=== PATIENT | female | born 1955 | race African-American/Black ===

== ENCOUNTER → 2017-04-01 | Outpatient (CLI) | payer OTHER ==
--- NOTE | 2017-04-02 09:29 | MM ---
Reason for exam: screening (asymptomatic). Last mammogram was performed 1 year and 3 months ago. History: Family history of breast cancer in mother. Physical Findings: A clinical breast exam by your physician is recommended on an annual basis and results should be correlated with mammographic findings. MG Screening Mammo w CAD Bilateral CC and MLO view(s) were taken. Prior study comparison: December 18, 2015, bilateral MG screening mammo w CAD. October 18, 2014, bilateral MG screening mammo w CAD. There are scattered fibroglandular densities. No suspicious abnormality. No significant changes when compared with prior studies. ASSESSMENT: Negative, BI-RAD 1 RECOMMENDATION: Routine screening mammogram of both breasts in 1 year.
== END | disposition home or self-care (01) ==
LOC: RADMAMWWP 09:38
PROVIDERS: ATTEND Obstetrics & Gynecology
DX: Z12.31 Encounter for screening mammogram for malignant neoplasm of breast (principal)

== ENCOUNTER → 2017-05-13 | Outpatient (CLI) | payer OTHER ==
--- NOTE | 2017-05-13 10:28 | US ---
EXAMINATION TYPE: US thyroid st tissue head/neck DATE OF EXAM: 05/13/2017 COMPARISON: US dated 10/10/2014 and 09/08/2013 CLINICAL HISTORY: E04.2 Nontoxic Multinodular Goiter. GLAND SIZE: Right Lobe: 4.9 x 1.4 x 1.5 cm Overall Parenchyma: homogenous Left Lobe: 5.4 x 2.5 x 3.0 cm Overall Parenchyma: heterogeneous Isthmus Thickness: 0.3 cm NODULES RIGHT: # of nodules measured on right: 1 1. 0.8 X 0.4 x 0.6 cm hypoechoic solid nodule at the lower pole with well-defined margins; present with microcalcifications. This nodule is wider than tall and shows intranodular vascularity. Prior size: 0.6 x 0.3 x 0.6 cm LEFT: # of nodules measured on left: 1 1. 4.7 X 2.5 x 3.2 cm isoechoic solid nodule at the mid pole with well-defined margins; . This nod ule is wider than tall and shows intranodular vascularity. Prior size: 3.9 x 2.1 x 2.7 cm ISTHMUS: # of nodules measured in the isthmus: 0 Bilateral neck scanned, no evidence of lymphadenopathy. Nodules as described, there are a couple other subcentimeter nodules seen on the right. Left nodule t akes up entire lobe, very little normal tissue seen. IMPRESSION: 1. Enlarging suspicious dominant left thyroid nodule that is solid and predominantly isoechoic with c ystic internal components and internal vascular flow. Percutaneous fine-needle aspiration is recommen ded for this lesion. 2. Minimally enlarging right thyroid nodule with potential inspissated colloid versus calcifications. Surveillance is recommended for this nodule and smaller subcentimeter nodules of the bilateral thyro id gland. 3. Enlarged heterogenous thyroid gland relating to thyroid goiter.
== END | disposition home or self-care (01) ==
LOC: RADUSWWP 09:40
PROVIDERS: ATTEND Family Medicine
DX: E04.2 Nontoxic multinodular goiter (principal)
CPT/HCPCS: 76536

== ENCOUNTER → 2017-06-03 | Outpatient (CLI) | payer OTHER ==
--- NOTE | 2017-06-03 09:00 | US ---
EXAMINATION TYPE: US kidneys/renal and bladder DATE OF EXAM: 06/03/2017 COMPARISON: Renal ultrasound June 01, 2012 CLINICAL HISTORY: R31.21 Asymptomatic microscopic hematuria. UTI, microscopic hematuria EXAM MEASUREMENTS: Right Kidney: 10.9 x 4.1 x 3.9 cm Left Kidney: 10.1 x 5.0 x 4.6 cm Technical limitations due to large amount of overlying bowel content Right Kidney: no evidence of hydronephrosis or mass Left Kidney: no evidence of hydronephrosis or mass Bladder: wnl Bilateral Jets seen: yes There is no evidence for hydronephrosis at this point in time. No nephrolithiasis is seen. No nuris s are identified on images saved. Bladder is not greatly distended and is thus suboptimally evaluate d. The urinary bladder is anechoic. Bilateral ureteral jets are seen. IMPRESSION: Suboptimal otherwise unremarkable study.
== END | disposition home or self-care (01) ==
LOC: RADUSWWP 08:15
PROVIDERS: ATTEND Family Medicine
DX: R31.21 Asymptomatic microscopic hematuria (principal)
CPT/HCPCS: 76770

== ENCOUNTER → 2018-03-24 | Outpatient (CLI) | payer OTHER ==
--- NOTE | 2018-03-26 01:47 | MR ---
EXAMINATION TYPE: MR knee RT wo con DATE OF EXAM: 03/24/2018 COMPARISON: Outside radiographs 03/12/2018 03/12/2014 HISTORY: 62-year-old female Right knee pain TECHNIQUE: Multiplanar, multisequence imaging of the right knee is performed without IV contrast. FINDINGS: ACL, PCL, and LCL complex are intact. There is mild soft tissue edema on either side of the intact MC L. There is a small inner margin radial tear involving the body lateral meniscus and some degenerative s ignal in the posterior horn. Mild diffuse thinning of lateral compartment articular cartilage volume. There is an oblique tear involving the junction of the posterior horn and body of the medial meniscus with mild diffuse thinning of articular cartilage volume in the medial compartment. Mild to moderate diffuse thinning of articular cartilage volume at the patellofemoral compartment wit h mild marginal spurring. Focal moderate thickness cartilage fissuring along the lateral patellar fac et. Extensor mechanism is intact. Small knee joint effusion and small 3.0 cm Mayorga's cyst. Normal popliteal artery anatomy with mild muscular atrophy. No suspicious bone marrow replacement. IMPRESSION: 1. Soft tissue edema suggesting grade 1 MCL sprain. 2. Oblique tear junction of the posterior horn and body of the medial meniscus. 3. Small inner margin radial tear involving the body of the lateral meniscus. 4. Mild diffuse articular cartilage thinning throughout the knee, mild to moderate within the patello femoral compartment. 5. Small knee joint effusion and small Mayorga's cyst.
== END | disposition home or self-care (01) ==
LOC: RADMRIMAIN 10:07
PROVIDERS: ATTEND Orthopaedic Surgery
DX: S83.241A Other tear of medial meniscus, current injury, right knee, initial encounter (principal); S83.281A Other tear of lateral meniscus, current injury, right knee, initial encounter; M25.461 Effusion, right knee; M71.21 Synovial cyst of popliteal space [Baker], right knee

== ENCOUNTER → 2018-03-30 | Outpatient (CLI) | payer OTHER ==
[2018-03-30 14:24] LABS: Basophils % (A) 1 %; Eosinophils % (A) 1 %; HCT 39.2 % (34.0-46.0); HGB 12.7 gm/dL (11.4-16.0); Lymphocytes # (A) 1.6 k/uL (1.0-4.8); Lymphocytes % (A) 38 %; MCH 27.7 pg (25.0-35.0); MCHC 32.5 g/dL (31.0-37.0); MCV 85.3 fL (80.0-100.0); Mean Platelet Volume 6.8; Monocytes # (A) 0.2 k/uL (0-1.0); Monocytes % (A) 4 %; Neutrophils # (A) 2.4 k/uL (1.3-7.7); Neutrophils % (A) 56 %; Platelet Count 300 k/uL (150-450); WBC 4.3 k/uL (3.8-10.6)
[2018-03-30 14:35] LABS: Potassium 4.3 mmol/L (3.5-5.1)
== END | disposition home or self-care (01) ==
LOC: LABPAT 13:02
PROVIDERS: ATTEND Orthopaedic Surgery
DX: Z01.818 Encounter for other preprocedural examination (principal); Z01.812 Encounter for preprocedural laboratory examination; M23.91 Unspecified internal derangement of right knee
CPT/HCPCS: 36415; 80051; 85025; 93005

== ENCOUNTER → 2018-04-21 | Day surgery (SDC) | payer OTHER ==
--- NOTE | 2018-04-20 13:49 | HP ---
HISTORY AND PHYSICAL DATE OF SERVICE: 04/21/2018 Kina Hendrix is a 63-year-old patient seen with progressive right knee pain. We discussed options. She would like to proceed with arthroscopy. Consent was obtained. PAST MEDICAL HISTORY: Hypertension, hypercholesterolemia. PAST SURGICAL HISTORY: Noncontributory. MEDICATIONS: 1. Triamterene/hydrochlorothiazide. 2. Aspirin. 3. Multivitamin. SOCIAL HISTORY: Patient denies tobacco use. ALLERGIES: None reported. PHYSICAL EVALUATION RIGHT KNEE: Range of motion. -1/2 to 115 degrees. Mild effusion. Tenderness along the medial and lateral joint lines. Positive medial Rickie's. Ligaments stable. Hip rotation without pain. Distal neurovascular exam intact. RADIOGRAPHS OF THE RIGHT KNEE: Revealed moderate osteoarthritis. MRI right knee revealed medial meniscal tear, lateral meniscal tear and effusion. IMPRESSION: Internal derangement, right knee with medial and lateral meniscal tears. PLAN: Right knee arthroscopy with partial meniscectomy and debridement. MMODL / IJN: [id number] /
[~2018-04-21] MED LIST: BUPIVACAIN-EPI 0.25%-1:200,000 30 ML VIAL INTRAARTIC ONE; DEXAMETHASONE SOD PHOSPHATE 10 MG/ML 1 ML VIAL IV ONE; HYDROcodone/APAP 5-325MG 1 EACH TAB PO ONE; HYDROmorphone (PF) 1 MG/ML ONE; HYDROmorphone 0.5 MG/0.5 ML SYRINGE IVP PRN; LACTATED RINGERS 1,000 ML IV SCH; LIDOCAINE 1% 20 ML VIAL (10MG/ML) FOR IV START INTRADERMA PRN; LIDOCAINE 1% INJ 10MG/ML (20 ML MDV) ONE; MIDAZOLAM 2 MG/2 ML VIAL IV PRN; MIDAZOLAM 2 MG/2 ML VIAL ONE; ONDANSETRON 4 MG/2 ML VIAL IVP ONE; PROPOFOL 10 MG/ML 20 ML VIAL IV ONE; SCOPOLAMINE 1.5MG/72HR PATCH TRANSDERM ONE; SUCCINYLCHOLINE CHLORIDE 100 MG/5 ML SYR IV ONE; ceFAZolin IN SWFI 2 GM/20 ML SYRINGE IVP ONE; ePHEDrine SULFATE/0.9% NACL/PF 50 MG/5 ML SYRINGE IV ONE; fentaNYL (PF) 50 MCG/ML 2 ML AMP ONE
--- NOTE | 2018-04-21 11:58 | P.OP ---
Date of Procedure: 04/21/18 Preoperative Diagnosis: Internal derangement right knee Postoperative Diagnosis: 1. Tear medial and lateral meniscus right knee 2. Grade 2 chondromalacia medial femoral condyle right knee 3. Grade 2 chondromalacia patella right knee 4. Reactive synovitis medial, lateral and suprapatellar compartments right Procedure(s) Performed: 1. Arthroscopic partial medial and lateral meniscectomy right knee 2. Arthroscopic chondroplasty medial femoral condyle right knee 3. Arthroscopic chondroplasty patella right knee 4. Arthroscopic partial synovectomy medial, lateral and suprapatellar compartments right knee Anesthesia: TADA, local Surgeon: Jose Max Estimated Blood Loss (ml): 5 Pathology: none sent Condition: stable Disposition: PACU Indications for Procedure: 63-year-old patient seen with progressive right knee pain. After treatment options were discussed, she elected to proceed with arthroscopy. Operative Findings: see description of procedure Description of Procedure: Patient was taken to the operative suite. Patient underwent a general anesthetic by the department of anesthesia. Patient was given preoperative antibiotics. The right lower extremity was placed in a well-padded arthroscopic leg chavis. The right leg was prepped and draped in the normal sterile orthopedic fashion. A lateral parapatellar and suprapatellar incision was made. Trochars were inserted. Arthroscopy was initiated. Suprapatellar pouch revealed diffuse thick reactive synovitis. The patellofemoral joint appeared to articulate congruently. There grade 2 chondromalacia with osteochondral tears present. The scope was guided into the medial gutter. No loose bodies or plica were identified. The scope was then guided into the medial compartment. A medial parapatellar incision was made. Trocar inserted followed by probe. There was a complex tear posterior horn medial meniscus. Grade 2 chondromalacia medial femoral condyle with osteochondral tears. Thick reactive synovitis anteriorly. I performed a partial medial meniscectomy down to stable tissue. I performed a chondroplasty of the medial femoral condyle. I performed a partial synovectomy decompressing the synovitis. The residual meniscus was stable. The residual osteochondral surface was stable. There was good decompression of the synovitis. Scope and probe were then guided into the intercondylar notch. Cruciates were identified, probed and found to be stable. The scope and probe were then guided into lateral compartment. There were radial tears midbody and posterior horn lateral meniscus. There was reactive synovitis anteriorly. The osteochondral surfaces were stable. I performed a partial lateral meniscectomy down to stable tissue. I performed a partial synovectomy decompressing the synovitis. The residual meniscus was stable. The scope was in guided back into the suprapatellar compartment. I introduced the motorized shaver into the suprapatellar compartment. I debrided some piecemeal fragments of meniscus. I performed a chondroplasty of the patella down to stable tissue. I performed a partial synovectomy. The residual osteochondral surface was stable. There was good decompression of the synovitis. Instruments were now removed from the joint. The joint was infiltrated with .25% Marcaine. Steri-Strips were applied to the portal sites. Sterile dressings were applied. The patient was placed into a FLORES hose. No tourniquet was utilized. The patient was awakened, transferred to a bed and taken to recovery stable satisfactory condition.
[2018-04-21 12:06] VITALS: RESP 16; TEMP 97.1
[2018-04-21 13:15] VITALS: BP 130/66; PULSE 78
== END ==
LOC: OR 08:38
PROVIDERS: ATTEND Orthopaedic Surgery
DX: S83.231A Complex tear of medial meniscus, current injury, right knee, initial encounter (principal); S83.281A Other tear of lateral meniscus, current injury, right knee, initial encounter; X58.XXXA Exposure to other specified factors, initial encounter; M94.261 Chondromalacia, right knee; M22.41 Chondromalacia patellae, right knee; M65.861 Other synovitis and tenosynovitis, right lower leg; M17.11 Unilateral primary osteoarthritis, right knee; I10 Essential (primary) hypertension; E78.00 Pure hypercholesterolemia, unspecified; Z79.82 Long term (current) use of aspirin; Z79.899 Other long term (current) drug therapy
CPT/HCPCS: 29880; J2250; J1100; J2405; J2001; J3010; J1170; J0330; J2704; J0690

== ENCOUNTER → 2018-05-17 | Outpatient (CLI) | payer OTHER ==
--- NOTE | 2018-05-17 12:54 | US ---
EXAMINATION TYPE: US thyroid st tissue head/neck DATE OF EXAM: 05/17/2018 COMPARISON: 05/13/2017 CLINICAL HISTORY: E04.2 Nontoxic multinodular Goiter. GLAND SIZE: Right Lobe: 5.0 x 1.4 x 1.4 cm Overall Parenchyma: homogenous Left Lobe: 5.9 x 2.7 x 3.5 cm Overall Parenchyma: heterogeneous Isthmus Thickness: 0.3 cm NODULES RIGHT: # of nodules measured on right: 1. 0.8 X 0.4 x 0.6 cm hypoechoic mixed nodule at the lower pole with well-defined margins; . This nodule is wider than tall and shows intranodular vascularity. Prior size: 0.8 x 0.4 x 0.6 cm Several other cysts seen, largest measures 0.7 x 0.5 x 0.5 cm at lower pole. LEFT: # of nodules measured on left: 1 1. 4.7 X 2.2 x 3.0 cm isoechoic mixed nodule at the mid pole with well-defined margins; . This nod ule is wider than tall and shows intranodular vascularity. Prior size: 4.7 x 2.5 x 3.2 cm ISTHMUS: # of nodules measured in the isthmus: 0 \ Bilateral neck scanned, no evidence of lymphadenopathy. Nodules as described. IMPRESSION: 1. Thyromegaly correlate for thyroiditis particularly involving the left lobe. 2. Stable bilateral thyroid nodules
== END | disposition home or self-care (01) ==
LOC: RADUSMAIN 12:13
PROVIDERS: ATTEND Internal Medicine
DX: E04.2 Nontoxic multinodular goiter (principal); Z80.3 Family history of malignant neoplasm of breast
CPT/HCPCS: 76536

== ENCOUNTER → 2018-10-04 | Outpatient (CLI) | payer OTHER ==
--- NOTE | 2018-10-04 12:06 | CT ---
EXAMINATION TYPE: CT abdomen pelvis wo con DATE OF EXAM: 10/04/2018 COMPARISON: None HISTORY: Hematuria and right flank and low back pain. CT DLP: 453.5 mGycm Automated exposure control for dose reduction was used. TECHNIQUE: Helical acquisition of images from the lung bases through the pelvis. FINDINGS: Lack of intravenous contrast could compromise sensitivity. Bilateral inguinal hernias are p resent containing fat. LUNG BASES: No significant abnormality is appreciated. AORTA: No significant abnormality is appreciated. LIVER/GB: Liver shows a low dense focus within the medial segment left lobe measuring approximately 1 3 mm which is indeterminate. PANCREAS: No significant abnormality is seen. SPLEEN: No significant abnormality is seen. ADRENALS: No significant abnormality is seen. KIDNEYS: No significant abnormality is seen. No ureteral calculus evident. REPRODUCTIVE ORGANS: No significant abnormality is seen. URINARY BLADDER: There is some tenting of the anterior aspect of the urinary bladder, sagittal images 60 and 61 with increased attenuation present within the fat and high dense focus within the umbilicu s measuring 12 mm possibly related to ureteral remnant. BOWEL: No significant abnormality is seen. FREE AIR: No Free Air is visible. ASCITES: None visible. PELVIC ADENOPATHY: None visualized. RETROPERITONEAL ADENOPATHY: No Retroperitoneal Adenopathy visible. OSSEOUS STRUCTURES: No significant abnormality is seen. Only mild degenerative disc changes are pres ent within the lumbar spine. IMPRESSION: INDETERMINATE LOW DENSE FOCUS WITHIN THE LIVER IS INDETERMINATE. SUSPECT URACHAL REMNANT DESCRIBED . NONCONTRAST EXAM. INGUINAL HERNIAS CONTAINING FAT. NO EVIDENT RENAL STONE OR HYDRONEPHROSIS.
== END | disposition home or self-care (01) ==
LOC: RADCTMAIN 11:32
PROVIDERS: ATTEND Urology
DX: K40.90 Unilateral inguinal hernia, without obstruction or gangrene, not specified as recurrent (principal); Z87.442 Personal history of urinary calculi
CPT/HCPCS: 74176

== ENCOUNTER → 2019-05-19 | Outpatient (CLI) | payer MEDICARE ==
--- NOTE | 2019-05-20 11:05 | MM ---
Reason for exam: screening (asymptomatic). Last mammogram was performed 1 year ago. History: Family history of breast cancer in mother. Physical Findings: A clinical breast exam by your physician is recommended on an annual basis and results should be correlated with mammographic findings. MG Screening Mammo w CAD Bilateral CC and MLO view(s) were taken. Prior study comparison: May 17, 2018, bilateral MG screening mammo w CAD. April 01, 2017, bilateral MG screening mammo w CAD. There are scattered fibroglandular densities. No suspicious abnormality. No significant changes when compared with prior studies. ASSESSMENT: Negative, BI-RAD 1 RECOMMENDATION: Routine screening mammogram of both breasts in 1 year.
== END | disposition home or self-care (01) ==
LOC: RADMAMWWP 13:43
PROVIDERS: ATTEND Internal Medicine
DX: Z12.31 Encounter for screening mammogram for malignant neoplasm of breast (principal)
CPT/HCPCS: 77067

== ENCOUNTER → 2019-12-06 | Outpatient (CLI) | payer MEDICARE ==
[2019-12-06 10:56] LABS: Basophils % (A) 1 %; Eosinophils # (A) 0.1 k/uL (0-0.7); Eosinophils % (A) 1 %; HCT 39.5 % (34.0-46.0); HGB 13.4 gm/dL (11.4-16.0); Lymphocytes # (A) 1.6 k/uL (1.0-4.8); Lymphocytes % (A) 39 %; MCH 29.4 pg (25.0-35.0); MCV 86.3 fL (80.0-100.0); Mean Platelet Volume 7.7; Monocytes # (A) 0.3 k/uL (0-1.0); Monocytes % (A) 6 %; Neutrophils # (A) 2.2 k/uL (1.3-7.7); Neutrophils % (A) 51 %; Platelet Count 286 k/uL (150-450); RBC 4.58 m/uL (3.80-5.40); RDW 12.9 % (11.5-15.5); WBC 4.2 k/uL (3.8-10.6)
[2019-12-06 17:26] LABS: African American GFR (CKD) 68.5 (60.0-200.0); Albumin 4.5 g/dL (3.80-4.90); Albumin/Globulin Ratio 1.8 (1.60-3.17); Anion Gap 7.7 mmol/L (4.00-12.00); Calcium 9.6 mg/dL (8.7-10.3); Carbon Dioxide 30.3 mmol/L (21.6-31.8); Chol/HDL Ratio 4.96; Globulin 2.5 g/dL (1.6-3.3); LDL Cholesterol,Calculated 204.4 mg/dL (0.0-131.0); Non-African American GFR(CKD) 59.1 (60.0-200.0); Total Bilirubin 0.7 mg/dL (0.3-1.2); VLDL Calculation 13.6 mg/dL (5.00-40.00)
== END | disposition home or self-care (01) ==
LOC: LABWHC1 09:35
PROVIDERS: ATTEND Internal Medicine
DX: Z00.00 Encounter for general adult medical examination without abnormal findings (principal); E78.2 Mixed hyperlipidemia
CPT/HCPCS: 36415; 80053; 80061; 85025

== ENCOUNTER → 2020-01-23 | Outpatient (CLI) | payer MEDICARE ==
--- NOTE | 2020-01-23 11:37 | P.STRESS ---
- Stress Test Note Stress Test Results/Findings: Exam Performed: stress echo exercise with con Exam Date: 01/23/20 Reason for Exam: CHEST PAIN Height: 5 ft 4 in Weight: 166 kg Protocol: SAMANTAH Stage: 3 Duration of Exercise: 9:00 Resting Heart Rate: 72 Resting Blood Pressure: 139/74 Maximum Achieved Heart Rate: 162 Maximum Achieved Blood Pressure: 212/67 85% PMHR: 132 100% PMHR: 155 METS: 10.3 Technologist Comment: Stress Test Results/Findings: This is a 64-year-old female with history of hypertension, family history of ischemic heart disease and hypercholesterolemia being evaluated for cardiac status. Stress data: Baseline EKG showed sinus rhythm with normal MO interval and QRS duration with nonspecific ST-T changes. Blood pressure at rest is 139/74 with pulse rate of 72. Patient walked on the Samantha protocol for 9 minutes achieving a maximum heart rate of 162 with a blood pressure 212/67. EKGs taken during and after exercise showed more pronounced ST-T changes in the lateral leads compared to the baseline. These are nonspecific findings. Echo data: Baseline echo images showed normal wall motion and thickening. Exerc ise echo images showed augmentation of wall motion and thickening in all segments. Final impression: #1. Negative Lexiscan stress test #2. Report on the nuclear images to begin by the radiologist.
--- NOTE | 2020-01-24 08:09 | ECHOS ---
Stress Test Results/Findings: Exam Performed: stress echo exercise with con Exam Date: 01/23/20 Reason for Exam: CHEST PAIN Height: 5 ft 4 in Weight: 166 kg Protocol: SAMANTHA Stage: 3 Duration of Exercise: 9:00 Resting Heart Rate: 72 Resting Blood Pressure: 139/74 Maximum Achieved Heart Rate: 162 Maximum Achieved Blood Pressure: 212/67 85% PMHR: 132 100% PMHR: 155 METS: 10.3 Technologist Comment: Stress Test Results/Findings: This is a 64-year-old female with history of hypertension, family history of ischemic heart disease and hypercholesterolemia being evaluated for cardiac status. Stress data: Baseline EKG showed sinus rhythm with normal MD interval and QRS duration with nonspecific ST-T changes. Blood pressure at rest is 139/74 with pulse rate of 72. Patient walked on the Samantha protocol for 9 minutes achieving a maximum heart rate of 162 with a blood pressure 212/67. EKGs taken during and after exercise showed more pronounced ST-T changes in the lateral leads compared to the baseline. These are nonspecific findings. Echo data: Baseline echo images showed normal wall motion and thickening. Exercise echo images showed augmentation of wall motion and thickening in all segments. Final impression: #1. Negative Lexiscan stress test #2. Report on the nuclear images to begin by the radiologist. CHELSY
== END | disposition home or self-care (01) ==
LOC: RADNMMAIN 09:01
PROVIDERS: ATTEND Internal Medicine
DX: I25.9 Chronic ischemic heart disease, unspecified (principal)
CPT/HCPCS: C8930; Q9950; 93351

== ENCOUNTER 2020-02-29 09:15 | Day surgery (SDC) | payer MEDICARE ==
[~2020-02-29 09:15] MED LIST changes: -BUPIVACAIN-EPI 0.25%-1:200,000 30 ML VIAL INTRAARTIC ONE; -DEXAMETHASONE SOD PHOSPHATE 10 MG/ML 1 ML VIAL IV ONE; -HYDROcodone/APAP 5-325MG 1 EACH TAB PO ONE; -HYDROmorphone (PF) 1 MG/ML ONE; -HYDROmorphone 0.5 MG/0.5 ML SYRINGE IVP PRN; +LIDOCAINE 1% (10MG/ML) FOR IV START INTRADERMA PRN; -LIDOCAINE 1% 20 ML VIAL (10MG/ML) FOR IV START INTRADERMA PRN; -LIDOCAINE 1% INJ 10MG/ML (20 ML MDV) ONE; -MIDAZOLAM 2 MG/2 ML VIAL IV PRN; -MIDAZOLAM 2 MG/2 ML VIAL ONE; -ONDANSETRON 4 MG/2 ML VIAL IVP ONE; -PROPOFOL 10 MG/ML 20 ML VIAL IV ONE; -SCOPOLAMINE 1.5MG/72HR PATCH TRANSDERM ONE; -SUCCINYLCHOLINE CHLORIDE 100 MG/5 ML SYR IV ONE; -ceFAZolin IN SWFI 2 GM/20 ML SYRINGE IVP ONE; -ePHEDrine SULFATE/0.9% NACL/PF 50 MG/5 ML SYRINGE IV ONE; -fentaNYL (PF) 50 MCG/ML 2 ML AMP ONE
[2020-02-29 09:54] VITALS: TEMP 97
[2020-02-29] MEDS ORDERED: LIDOCAINE 1% INJ 10MG/ML (20 ML MDV) ONE (10:32)
[2020-02-29] MEDS ORDERED: PROPOFOL 10 MG/ML 20 ML VIAL IV ONE (10:32)
--- NOTE | 2020-02-29 10:54 | P.PCN ---
Date of Procedure: 02/29/20 Procedure(s) Performed: BRIEF HISTORY: Patient is a 64-year-old pleasant female scheduled for an elective colonoscopy as a part of screening for colorectal neoplasia. He has family history of colon cancer diagnosed in her father at age 62. PROCEDURE PERFORMED: Colonoscopy. PREOPERATIVE DIAGNOSIS: Screening for colon cancer/family history of colon cancer. IV sedation per Anesthesia. PROCEDURE: After informed consent was obtained, the patient, was brought into the endoscopy unit. IV sedation was administered by Anesthesia under continuous monitoring. Digital rectal examination was normal. Initially the Olympus CF-160 flexible video colonoscope was then inserted in the rectum, gradually advanced into the cecum without any difficulty. Careful examination was performed as the scope was gradually being withdrawn. Ileocecal valve and the appendiceal orifice were visualized and appeared normal. Prep was excellent. Mucosa of the cecum, ascending colon, transverse colon, descending colon, sigmoid colon, and rectum appeared normal. Retroflexion was performed in the rectum and no lesions were seen. The patient tolerated the procedure well. IMPRESSION: Normal-appearing colon from rectum to cecum with no evidence of colorectal neoplasia . RECOMMENDATIONS: Findings of this examination were discussed with the patient is well as her family. She was advised to have a repeat screening colonoscopy every 5 years because of the family history of colon cancer.
[2020-02-29 10:56] VITALS: RESP 16
[2020-02-29 11:15] VITALS: BP 133/70; PULSE 66
== END 2020-02-29 11:51 | disposition home or self-care (01) ==
LOC: ORWHC2ENDO 09:15
PROVIDERS: ATTEND Internal Medicine Gastroenterology
DX: Z12.11 Encounter for screening for malignant neoplasm of colon (principal); Z80.0 Family history of malignant neoplasm of digestive organs; I10 Essential (primary) hypertension; E78.5 Hyperlipidemia, unspecified; Z79.82 Long term (current) use of aspirin; Z79.899 Other long term (current) drug therapy
CPT/HCPCS: J2001; J2704; G0105

== ENCOUNTER → 2020-06-11 | Outpatient (CLI) | payer MEDICARE ==
--- NOTE | 2020-06-12 09:41 | MM ---
Reason for exam: screening (asymptomatic). Last mammogram was performed 1 year and 1 month ago. History: Family history of breast cancer in mother. Physical Findings: A clinical breast exam by your physician is recommended on an annual basis and results should be correlated with mammographic findings. MG Screening Mammo w CAD Bilateral CC and MLO view(s) were taken. Prior study comparison: May 19, 2019, bilateral MG screening mammo w CAD. May 17, 2018, bilateral MG screening mammo w CAD. There are scattered fibroglandular densities. There is chronic nodularity bilaterally. No significant changes when compared with prior studies. ASSESSMENT: Benign, BI-RAD 2 RECOMMENDATION: Routine screening mammogram of both breasts in 1 year.
--- NOTE | 2020-06-12 16:40 | BD ---
EXAMINATION TYPE: Axial Bone Density DATE OF EXAM: 06/11/2020 COMPARISON: NONE CLINICAL HISTORY: Height: 64.5 Weight: 170.6 FRAX RISK QUESTIONS: Alcohol (3 or more units per day): no Family History (Parent hip fracture): no Glucocorticoids (More than 3mos): no (Ex: prednisone, prednisolone, methylprednisolone, dexamethasone, and hydrocortisone). History of Fracture in Adulthood: no Secondary Osteoporosis: 1. Type 1 Diabetes: no 2. Hyperthyroidism: no 3. Menopause before 45: no 4. Malnutrition: no 5. Chronic liver disease: no Rheumatoid Arthritis: no Current Tobacco Use: no RISK FACTORS HISTORY OF: Family History of Osteoporosis: no Active: yes Diet low in dairy products/other sources of calcium: yes Postmenopausal woman: age 59 Lost more than 2 inches in height since high school: no MEDICATIONS: blood pressure, lipitor Additional History: EXAM MEASUREMENTS: Bone mineral densitometry was performed using the Synergy Hub System. Bone mineral density as measured about the Lumbar spine is: ----- L1-L4(G/cm2): 1.454 T Score Values are as follows: ----- L2: 2.6 ----- L3: 2.2 ----- L4: 2.1 ----- L1-L4: 2.3 Bone mineral density has: increased 5.2 % since study of: 12.18.2015 Bone mineral density about the R hip (g/cm2): 0.917 Bone mineral density about the L hip (g/cm2): 0.944 T Score values are as follows: -----R Neck: -0.9 -----L Neck: -0.7 -----R Total: 0.0 -----L Total: 0.4 Bone mineral density has: decreased -0.3 % since study of: 12.18.2015 IMPRESSION: Normal (Values between +1 and -1 indicate normal bone mass). Consider repeating this study in 5 year s or sooner if there is some new clinical indication. NOTE: T-SCORE=SD OF THE YOUNG ADULT MEAN.
== END | disposition home or self-care (01) ==
LOC: RADMAMWWP 15:53
PROVIDERS: ATTEND Internal Medicine
DX: Z12.31 Encounter for screening mammogram for malignant neoplasm of breast (principal); M81.0 Age-related osteoporosis without current pathological fracture
CPT/HCPCS: 77067; 77080

== ENCOUNTER → 2021-09-17 | Outpatient (CLI) | payer MEDICARE ==
--- NOTE | 2021-09-18 13:57 | MM ---
Reason for exam: screening (asymptomatic). Last mammogram was performed 1 year and 3 months ago. History: Family history of breast cancer in mother. Physical Findings: A clinical breast exam by your physician is recommended on an annual basis and results should be correlated with mammographic findings. MG 3D Screening Mammo W/Cad Bilateral CC and MLO view(s) were taken. Prior study comparison: June 11, 2020, bilateral MG screening mammo w CAD. May 19, 2019, bilateral MG screening mammo w CAD. There are scattered fibroglandular densities. There is no discrete abnormality. No significant changes when compared with prior studies. ASSESSMENT: Negative, BI-RAD 1 RECOMMENDATION: Routine screening mammogram of both breasts in 1 year.
== END | disposition home or self-care (01) ==
LOC: RADMAMWWP 11:15
PROVIDERS: ATTEND Internal Medicine
DX: Z12.31 Encounter for screening mammogram for malignant neoplasm of breast (principal); Z80.3 Family history of malignant neoplasm of breast
CPT/HCPCS: 77063; 77067

== ENCOUNTER → 2021-10-31 | Outpatient (CLI) | payer MEDICARE ==
--- NOTE | 2021-10-31 10:12 | US ---
EXAMINATION TYPE: US thyroid st tissue head/neck DATE OF EXAM: 10/31/2021 COMPARISON: NONE CLINICAL HISTORY: E04.1 THYROID NODULE. GLAND SIZE: Right Lobe: 5.3 x 1.5 x 1.5 cm Overall Parenchyma: homogenous Left Lobe: 5.8 x 2.9 x 3.8 cm Overall Parenchyma: heterogeneous Isthmus Thickness: 0.4 cm NODULES RIGHT: # of nodules measured on right: multiple small nodules with largest described below 1. 1.0 X 0.5 x 0.8 cm, lower mid, cystic or almost completely cystic, hypoechoic nodule, which is w ider than tall, with smooth margins, without echogenic foci. Prior size: 0.8 x 0.4 x 0.6 cm LEFT: # of nodules measured on left: 1 1. 4.8 X 2.4 x 2.9 cm, mid mid, solid or almost completely solid, hypoechoic nodule, which is wider than tall, with ill-defined margins, without echogenic foci. Prior size: 4.7 x 2.2 x 3.0 cm ISTHMUS: # of nodules measured in the isthmus: 0 Bilateral neck scanned, no evidence of lymphadenopathy. Asymmetric left lobe enlargement due to dominant predominantly solid slightly hyperechoic left-sided nodule. Multiple scattered smaller nodules redemonstrated. IMPRESSION: As above. No significant new greater than 1.0 cm solid nodules.
--- NOTE | 2021-10-31 11:39 | US ---
EXAMINATION TYPE: US carotid duplex BILAT DATE OF EXAM: 10/31/2021 COMPARISON: NONE CLINICAL HISTORY: I65.23 CAROTID STENOSIS. EXAM MEASUREMENTS: RIGHT: Peak Systolic Velocity (PSV) cm/sec ----- Right CCA: 63.8 ----- Right ICA: 97.4 ----- Right ECA: 80.9 ICA/CCA ratio: 1.5 RIGHT: End Diastole cm/sec ----- Right CCA: 14.7 ----- Right ICA: 34.7 ----- Right ECA: 12.8 LEFT: Peak Systolic Velocity (PSV) cm/sec ----- Left CCA: 61.6 ----- Left ICA: 90.8 ----- Left ECA: 86.4 ICA/CCA ratio: 1.5 LEFT: End Diastole cm/sec ----- Left CCA: 15.4 ----- Left ICA: 33.6 ----- Left ECA: 10.6 VERTEBRALS (direction of flow): Right Vertebral: Antegrade Left Vertebral: Antegrade Rhythm: Normal No significant stenosis Mueller scale images show mild peripheral plaque bilateral carotid bulb level. IMPRESSION: No hemodynamically significant stenosis in either internal carotid artery. Criteria for Assigning % of Stenosis / Diameter reduction (Estimation based on the indirect measurements of the internal carotid artery velocities (ICA PSV). 1. Normal (no stenosis)=ICA PSV < 125 cm/s: ratio < 2.0: ICA EDV<40 cm/s. 2. Less than 50% stenosis=ICA PSV < 125 cm/s: ratio < 2.0: ICA EDV<40 cm/s. 3. 50 to 69% stenosis=ICA PSV of 125 to 230 cm/s: ration 2.0 ? 4.0: ICA EDV 40-100 cm/s. 4. Greater than 70% stenosis to near occlusion= ICA PSV > 230 cm/s: ratio > 4.0: ICA EDV > 100 cm/s. 5. Near occlusion= ICA PSV velocities may be low or undetectable: variable ratio and ICA EDV. 6. Total occlusion=unable to detect flow.
== END | disposition home or self-care (01) ==
LOC: RADUSWWP 09:02
PROVIDERS: ATTEND Internal Medicine
DX: E04.1 Nontoxic single thyroid nodule (principal); I65.23 Occlusion and stenosis of bilateral carotid arteries
CPT/HCPCS: 76536; 93880

== ENCOUNTER → 2022-05-26 | Outpatient (CLI) | payer MEDICARE ==
--- NOTE | 2022-05-26 09:09 | US ---
EXAMINATION TYPE: US abdomen complete DATE OF EXAM: 05/26/2022 COMPARISON: NONE CLINICAL HISTORY: K21.00 GASTROESOPHAGEAL REFLUX, R10.13 EPIGASTRIC PAIN. TECHNIQUE: Multiple sonographic images of the abdomen are obtained. FINDINGS: EXAM MEASUREMENTS: Liver Length: 12.6 cm Gallbladder Wall: 0.16 cm CBD: 0.23 cm Spleen: 6.4 cm Right Kidney: 10.1 x 3.9 x 4.5 cm Left Kidney: 11.0 x 4.5 x 3.1 cm WILD LIFE MANAGER NOTES: Exam limited by overlying bowel gas Pancreas: Tail obscured by overlying bowel gas Liver: Hypoechoic, possible cystic mass at the dome of the right liver 1.0 x 1.5 x 1.0cm Gallbladder: wnl Evidence for sonographic Moe's sign: No CBD: wnl Spleen: wnl Right Kidney: wnl Left Kidney: wnl Upper IVC: wnl Abd Aorta: wnl The liver is homogenous. The intrahepatic portion of the IVC and proximal abdominal aorta are within normal limits. There is no evidence of cholelithiasis. Common bile duct is unremarkable. The visu alized portions of the pancreas are homogenous. The spleen is unremarkable. Kidneys are symmetric a nd free of hydronephrosis. No renal lesions are seen. IMPRESSION: 1. Probable cyst at the dome of the liver which can be confirmed with CT.
== END | disposition home or self-care (01) ==
LOC: RADUSWWP 08:18
PROVIDERS: ATTEND Internal Medicine
DX: R10.13 Epigastric pain (principal); K21.00 Gastro-esophageal reflux disease with esophagitis, without bleeding
CPT/HCPCS: 76700

== ENCOUNTER → 2022-11-27 | Outpatient (CLI) | payer MEDICARE ==
--- NOTE | 2022-11-28 19:01 | MM ---
Reason for Exam: Screening (asymptomatic). Last mammogram was performed 1 year(s) and 2 month(s) ago. Patient History: Menarche at age 11. First Full-Term at age 18. Hysterectomy at age 40. Mother had breast cancer. Risk Values: Rubi 5 year model risk: 2.8%. NCI Lifetime model risk: 8.4%. Prior Study Comparison: 05/19/2019 Bilateral Screening Mammogram, [facility]. 06/11/2020 Bilateral Screening Mammogram, [facility]. 09/17/2021 Bilateral Screening Mammogram, [facility]. Tissue Density: The breast tissue is almost entirely fat. Findings: Analyzed By CAD. There is no suspicious group of microcalcifications or new suspicious mass in either breast. Overall Assessment: Negative, BI-RAD 1 Management: Screening Mammogram of both breasts in 1 year. . Patient should continue monthly self-breast exams. A clinical breast exam by your physician is recommended on an annual basis. This exam should not preclude additional follow-up of suspicious palpable abnormalities. Note on Rubi scores and lifetime risk: 1. A Rubi score greater than 3% is considered moderate risk. If this is the case, consider specialist referral to assess eligibility for a risk reducing agent. 2. If overall lifetime risk for the development of breast cancer is 20% or higher, the patient may qualify for future screening with alternating mammogram and breast MRI. Electronically signed and approved by: Nichole Wilson M.D. Radiologist
== END | disposition home or self-care (01) ==
LOC: RADMAMWWP 09:42
PROVIDERS: ATTEND Internal Medicine
DX: Z12.31 Encounter for screening mammogram for malignant neoplasm of breast (principal); Z80.3 Family history of malignant neoplasm of breast
CPT/HCPCS: 77063; 77067

== ENCOUNTER → 2023-06-24 | Outpatient (CLI) | payer MEDICARE ==
--- NOTE | 2023-06-24 11:56 | NM ---
EXAMINATION TYPE: NM stress cardiolite complete DATE OF EXAM: 06/24/2023 COMPARISON: NONE CLINICAL INDICATION: Female, 68 years old with history of I25.9 CHRONIC ISCHEMIC HEART DISEASE; TECHNIQUE: After the intravenous administration of 10.0 mCi Tc 99m Sestamibi - Rest images obtained 45 minutes post injection. The patient exercised using a SAMANTHA protocol and 1 minute prior to peak exercise was injected with 25.5 mCi Tc 99m Sestamibi - Stress images obtained 30 minutes post injecti on. FINDINGS: Targeted heart rate was achieved during performance of the study. Review of stress and rest SPECT lizbeth ges demonstrates no distinct perfusion abnormality. Gated analysis shows normal wall motion with an estimated left ventricular ejection fraction of 71 %. IMPRESSION: No scintigraphic evidence for reversible ischemia
--- NOTE | 2023-06-24 13:27 | CA ---
Exercise Nuclear Stress Test Report Name: Kina Hendrix Exam Date: 06/24/2023 10:08 Exam Location: [facility] Ht (in): 64 Wt (lb): 168 BSA: 1.82 Ordering Phys: Cecily Molina MD Referring Phys: Tracy, Technologist: Richard Almeida Age: 68 Gender: F : 1955 Procedure CPT: Indications: I25.9 CHRONIC ISCHEMIC HEART DISEASE ICD-10 Codes: Patient History: Medications: METOPROLOL,,,,,, LOSARTAN,,,,,, AMLODIPINE,,,,,, ATORVASTATIN,,,,,, ASA 81 mg,,,,, Meds past 24 hrs: Pretest Chest Pain: STRESS TEST Derick Protocol Exercise Duration (min:sec): 07:[address] Depressions (mm): 0 Angina Score: 0 Petersen Score: 7.75 Resting HR (bpm): 66 Peak HR (bpm): 157 Resting BP (mmHg): 162 / 78 Peak BP (mmHg): 207 / 73 MPHR: 151 Target HR: 128 % MPHR: 104 METS: 10.1 Total Dose: Peak Dose: Atropine: Double Product: 87830 BP Response: Stress Termination: TARGET HR REACHED/MAX EXERTION Stress Symptoms: NO SYMPTOMS Stress Summary: The patient's target heart rate was achieved, The hemodynamic response to exercise was normal ECG ANALYSIS Resting ECG: Sinus rhythm. Normal conduction. No arrhythmias. Normal repolarization. Stress ECG: No ECG evidence of ischemia with exercise. Ventricular premature contraction. CONCLUSIONS Patient falls into low-risk group (DTS >= +5). This associates the patient with an annual CV mortality <= 0.5%. 1. Average exercise tolerance 2. Normal electrocardiographic response to exercise 3. Nuclear images will be reported separately Dr. Memo Kraft MD (Electronically Signed) Final Date: 24 June 2023 13:26
== END | disposition home or self-care (01) ==
LOC: RADNMMAIN 08:26
PROVIDERS: ATTEND Internal Medicine
DX: I25.9 Chronic ischemic heart disease, unspecified (principal); R07.9 Chest pain, unspecified
CPT/HCPCS: 93017; 78452; A9500

== ENCOUNTER → 2023-11-17 | Outpatient (CLI) | payer MEDICARE ==
[2023-11-17 18:37] LABS: HCT 37.8 % (37.2-46.3); HGB 12.6 g/dL (12.0-15.0); MCHC 33.3 g/dL (32.0-37.0); MCV 86.9 FL (80.0-97.0); Mean Platelet Volume 11.1 FL (9.5-12.2); NRBC Per 100 WBC 0 X 10*3/uL (0.00-0.01); Platelet Count 275 X 10*3/uL (140-440); RBC 4.35 X 10*6/uL (4.10-5.20); RDW 13.2 % (11.5-14.5); WBC 4.33 X 10*3/uL (4.50-10.00)
[2023-11-17 18:38] LABS: Basophils # (A) 0.02 X 10*3/uL (0.00-0.10); Basophils % (A) 0.5 %; Eosinophils # (A) 0.05 X 10*3/uL (0.04-0.35); Eosinophils % (A) 1.2 %; Lymphocytes # (A) 1.44 X 10*3/uL (0.90-5.00); Lymphocytes % (A) 33.3 %; Monocytes # (A) 0.38 X 10*3/uL (0.20-1.00); Monocytes % (A) 8.8 %; Neutrophils # (A) 2.43 X 10*3/uL (1.80-7.70)
[2023-11-17 20:24] LABS: ALT 29 U/L (8-44); AST 24 U/L (13-35); Albumin 4.7 g/dL (3.8-4.9); Albumin/Globulin Ratio 1.81 Ratio (1.60-3.17); Alkaline Phosphatase 84 U/L (41-126); BUN/Creat Ratio 23.44 Ratio (12.00-20.00); Blood Urea Nitrogen 21.1 mg/dL (9.0-27.0); Carbon Dioxide 28.5 mmol/L (21.6-31.8); Chloride 101 mmol/L (96-109); Chol/HDL Ratio 2.76 Ratio; Globulin 2.6 g/dL (1.6-3.3); Glucose 95 mg/dL (70-110); LDL Cholesterol,Calculated 96.7 mg/dL (0.0-131.0); Potassium 3.7 mmol/L (3.5-5.5); Sodium 142 mmol/L (135-145); Total Bilirubin 0.5 mg/dL (0.3-1.2); Total Protein 7.3 g/dL (6.2-8.2); Uric Acid 4.6 mg/dL (2.9-7.7)
[2023-11-17 21:36] LABS: Appearance,Urine Cloudy (Clear); Bilirubin,Urine Negative (Negative); Blood,Urine Negative (Negative); Color,Urine Yellow (Yellow); Ketones,Urine Negative (Negative); Nitrite,Urine Positive (Negative); PH, Urine 6.5; Specific Gravity,Urine 1.014 (1.001-1.030); Urobilinogen,Urine 0.2 E.U./DL
[2023-11-17 21:43] LABS: Bacteria,Urine 4+ (None Seen)
== END | disposition home or self-care (01) ==
LOC: LABWHC1 10:59
PROVIDERS: ATTEND Internal Medicine
DX: I10 Essential (primary) hypertension (principal); E55.9 Vitamin D deficiency, unspecified; E78.2 Mixed hyperlipidemia; R73.01 Impaired fasting glucose
CPT/HCPCS: 36415; 80053; 80061; 81001; 82306; 83036; 83735; 84443; 84550; 85025

== ENCOUNTER → 2023-12-10 | Outpatient (CLI) | payer MEDICARE ==
--- NOTE | 2023-12-10 21:15 | MM ---
Reason for Exam: Screening (asymptomatic). Last mammogram was performed 1 year(s) and 1 month(s) ago. Patient History: Menarche at age 11. First Full-Term at age 18. Left ovary removed at age 44. Hysterectomy at age 40. Mother had breast cancer, age 50. Risk Values: Rubi 5 year model risk: 2.8%. NCI Lifetime model risk: 8.0%. Prior Study Comparison: 06/11/2020 Bilateral Screening Mammogram, [facility]. 09/17/2021 Bilateral Screening Mammogram, [facility]. 11/27/2022 Bilateral MG 3D screening mammo w/cad, [facility]. Tissue Density: There are scattered areas of fibroglandular density. Findings: Analyzed By CAD. There is no suspicious group of microcalcifications or new suspicious mass in either breast. Overall Assessment: Negative, BI-RAD 1 Management: Screening Mammogram of both breasts in 1 year. . Patient should continue monthly self-breast exams. A clinical breast exam by your physician is recommended on an annual basis. This exam should not preclude additional follow-up of suspicious palpable abnormalities. Note on Rubi scores and lifetime risk: 1. A Rubi score greater than 3% is considered moderate risk. If this is the case, consider specialist referral to assess eligibility for a risk reducing agent. 2. If overall lifetime risk for the development of breast cancer is 20% or higher, the patient may qualify for future screening with alternating mammogram and breast MRI. Electronically signed and approved by: Nichole Wilson M.D. Radiologist
--- NOTE | 2023-12-11 08:54 | US ---
EXAMINATION TYPE: US carotid duplex BILAT DATE OF EXAM: 12/10/2023 COMPARISON: 10/31/2021 CLINICAL INDICATION: Female, 68 years old with history of I65.23 BILATERAL CAROTID STENOSIS; Patient denies any changes from prior exam TECHNIQUE: Carotid duplex ultrasound examination. Indirect Doppler criteria was utilized. FINDINGS: EXAM MEASUREMENTS: RIGHT: Peak Systolic Velocity (PSV) cm/sec ----- Right CCA: 65 ----- Right ICA: 100 ----- Right ECA: 114 ICA/CCA ratio: 1.5 RIGHT: End Diastole cm/sec ----- Right CCA: 12 ----- Right ICA: 23 ----- Right ECA: 12 LEFT: Peak Systolic Velocity (PSV) cm/sec ----- Left CCA: 79 ----- Left ICA: 98 ----- Left ECA: 80 ICA/CCA ratio: 1.2 LEFT: End Diastole cm/sec ----- Left CCA: 14 ----- Left ICA: 24 ----- Left ECA: 10 VERTEBRALS (direction of flow): Right Vertebral: Antegrade Left Vertebral: Antegrade Rhythm: Normal HEALTH EDUCATION SPECIALIST NOTES: Plaque right CCA bulb/ICA, no intimal thickening or elevated velocities seen. IMPRESSION: 1. Minimal intimal thickening/plaque formation in the carotid bifurcations with no significant stenos is based on color grayscale imaging. 2. No hemodynamically significant stenosis based on peak systolic velocities and ratios. Criteria for Assigning % of Stenosis / Diameter reduction (Estimation based on the indirect measurements of the internal carotid artery velocities (ICA PSV). 1. Normal (no stenosis)=ICA PSV < 125 cm/s: ratio < 2.0: ICA EDV<40 cm/s. 2. Less than 50% stenosis=ICA PSV < 125 cm/s: ratio < 2.0: ICA EDV<40 cm/s. 3. 50 to 69% stenosis=ICA PSV of 125 to 230 cm/s: ration 2.0 ? 4.0: ICA EDV 40-100 cm/s. 4. Greater than 70% stenosis to near occlusion= ICA PSV > 230 cm/s: ratio > 4.0: ICA EDV > 100 cm/s. 5. Near occlusion= ICA PSV velocities may be low or undetectable: variable ratio and ICA EDV. 6. Total occlusion=unable to detect flow.
== END | disposition home or self-care (01) ==
LOC: RADMAMWWP 11:59
PROVIDERS: ATTEND Internal Medicine
DX: Z12.31 Encounter for screening mammogram for malignant neoplasm of breast (principal); I65.23 Occlusion and stenosis of bilateral carotid arteries; Z80.3 Family history of malignant neoplasm of breast
CPT/HCPCS: 77063; 77067; 93880

== ENCOUNTER → 2024-05-06 | Outpatient (CLI) | payer MEDICARE ==
--- NOTE | 2024-05-06 11:03 | US ---
EXAMINATION TYPE: US kidneys/renal and bladder DATE OF EXAM: 05/06/2024 COMPARISON: Prior ultrasound. CLINICAL INDICATION: Female, 69 years old with history of R31.9 HEMATURIA; microscopic hematuria TECHNIQUE: Grayscale imaging of the bilateral kidneys and urinary bladder: FINDINGS: EXAM MEASUREMENTS: Right Kidney: 11.5 x 4.2 x 3.8 cm Left Kidney: 9.8 x 4.4 x 3.9 cm *Limitations due to large amount of ovelying bowel gas Right Kidney: no evidence of hydronephrosis Left Kidney: no evidence of hydronephrosis Bladder: not fully distended Bilateral Jets seen: no There is no evidence for hydronephrosis at this point in time. No nephrolithiasis is seen. No nuris s are identified. The urinary bladder is anechoic. IMPRESSION: No evidence for obstructive uropathy or renal calculus. [facility], , 05/06/2024 11:01 AM
== END | disposition home or self-care (01) ==
LOC: RADUSWWP 08:51
PROVIDERS: ATTEND Internal Medicine
DX: R31.29 Other microscopic hematuria (principal)
CPT/HCPCS: 76770

== ENCOUNTER → 2024-06-21 | Outpatient (CLI) | payer MEDICARE ==
--- NOTE | 2024-06-21 11:26 | XR ---
EXAMINATION TYPE: XR KUB DATE OF EXAM: 06/21/2024 10:41 AM COMPARISON: None CLINICAL INDICATION: Female, 69 years old with history of R31.9 HEMATURIA, UNSPECIFIED; [facility] TECHNIQUE: One radiographic view of the abdomen was obtained. FINDINGS: The bowel gas pattern is nonspecific without dilated loops of small or large bowel. . Fecal material and gas are demonstrated throughout the colon and rectum. There is no evidence for organome tabby or pneumoperitoneum. The osseous structures are intact. Pelvic phleboliths are present. IMPRESSION: Nonspecific bowel gas pattern without radiographic evidence for acute process. [facility], , 06/21/2024 11:23 AM
== END | disposition home or self-care (01) ==
LOC: RADXRMAIN 10:30
PROVIDERS: ATTEND Internal Medicine
DX: R31.9 Hematuria, unspecified (principal); I87.8 Other specified disorders of veins
CPT/HCPCS: 74018

== ENCOUNTER → 2024-12-15 | Outpatient (CLI) | payer MEDICARE ==
--- NOTE | 2024-12-15 10:02 | MM ---
Reason for Exam: Screening (asymptomatic). Last screening mammogram was performed 12 month(s) ago. Patient History: Menarche at age 11. First Full-Term at age 18. Left ovary removed at age 44. Hysterectomy at age 40. Postmenopausal. Mother had breast cancer, age 50. Risk Values: Rubi 5 year model risk: 2.8%. NCI Lifetime model risk: 7.7%. Prior Study Comparison: 09/17/2021 Bilateral Screening Mammogram, [facility]. 11/27/2022 Bilateral MG 3D screening mammo w/cad, [facility]. 12/10/2023 Bilateral MG 3D screening mammo w/cad, [facility]. Tissue Density: There are scattered areas of fibroglandular density. Findings: Analyzed By CAD. There is no suspicious group of microcalcifications or new suspicious mass in either breast. Punctate benign calcifications. Chronic nodularity stable. Overall Assessment: Benign, BI-RAD 2 Management: Screening Mammogram of both breasts in 1 year. . Patient should continue monthly self-breast exams. A clinical breast exam by your physician is recommended on an annual basis. This exam should not preclude additional follow-up of suspicious palpable abnormalities. Note on Rubi scores and lifetime risk: 1. A Rubi score greater than 3% is considered moderate risk. If this is the case, consider specialist referral to assess eligibility for a risk reducing agent. 2. If overall lifetime risk for the development of breast cancer is 20% or higher, the patient may qualify for future screening with alternating mammogram and breast MRI. [facility], , 12/15/2024 9:59 AM. Electronically signed and approved by: George Nguyen M.D. Radiologis
--- NOTE | 2024-12-15 11:05 | BD ---
EXAMINATION TYPE: Axial Bone Density DATE OF EXAM: 12/15/2024 CLINICAL HISTORY: 69 years old Female. ICD-10 CODE: M81.0 AGE RELATED OSTE , Additional History: Height: 64.2 Weight: 176 FRAX RISK QUESTIONS: Secondary Osteoporosis: RISK FACTORS HISTORY OF: MEDICATIONS: EXAM MEASUREMENTS: Bone mineral densitometry was performed using the [facility] System. Bone mineral density as measured about the Lumbar spine is: ----- L1-L4(G/cm2): 1.473 T Score Values are as follows: ----- L1: 2.1 ----- L2: 2.6 ----- L3: 2.6 ----- L4: 2.3 ----- L1-L4: 2.4 Z Score Values are as follows: ----- L1: 2.6 ----- L2: 3.0 ----- L3: 3.0 ----- L4: 2.8 ----- L1-L4: 2.9 Bone mineral density has: Increased 1.3% since study of: 06-11-20 Bone mineral density about the R hip (g/cm2): 1.027 Bone mineral density about the L hip (g/cm2): 1.069 T Score values are as follows: -----R Neck: -0.7 -----L Neck: -0.5 -----R Total: 0.2 -----L Total: 0.5 Z Score values are as follows: -----R Neck: -0.2 -----L Neck: 0.0 -----R Total: 0.3 -----L Total: 0.7 Bone mineral density has: Increased 1.2% since study of: 06-11-20 FRAX%s: The graph provided illustrates a 3.6% chance for a major osteoporotic fx and a 0.3% chance fo r the hips probability for fx in 10 years time. IMPRESSION: Normal (Values between +1 and -1 indicate normal bone mass). Consider repeating this study in 5 year s or sooner if there is some new clinical indication. NOTE: T-SCORE=SD OF THE YOUNG ADULT MEAN. [facility], , 12/15/2024 11:03 AM
--- NOTE | 2024-12-15 12:23 | CA ---
Transthoracic Echo Report Name: Kina Hendrix Age: 69 Gender: F : 1955 Exam Date: 12/15/2024 10:29 Exam Location: [place] [facility] Ht (in): 64 Wt (lb): 176 Ordering Physician: Cecily Molina MD Attending/Referring Phys: Cecily Molina MD Shorts Sifter Dilma Ramirez, FAUZIA Procedure CPT: Indications: I34.0 MITRAL (VALVE) INSUFF M81.0 AGE RELATED OSTE Cardiac Hx: Technical Quality: Fair Contrast 1: Total Dose (mL): Contrast 2: Total Dose (mL): MEASUREMENTS (Male / Female) Normal Values 2D ECHO LV Diastolic Diameter PLAX 3.7 cm 4.2 - 5.9 / 3.9 - 5.3 cm LV Systolic Diameter PLAX 2.4 cm IVS Diastolic Thickness 1.6 cm 0.6 - 1.0 / 0.6 - 0.9 cm LVPW Diastolic Thickness 1.4 cm 0.6 - 1.0 / 0.6 - 0.9 cm LV Relative Wall Thickness 0.8 RV Internal Dim ED PLAX 3.3 cm LVOT Diameter 2.0 cm LV Diastolic Volume MOD BP 91.5 cm??? 67 - 155 / 56 - 104 cm??? LV Systolic Volume MOD BP 31.3 cm??? 22 - 58 / 19 - 49 cm??? LV Ejection Fraction MOD BP 65.8 % >= 55 % LV Cardiac Index MOD BP 1721.9 cm???/min???m??? LV Diastolic Volume MOD 4C 85.2 cm??? LV Systolic Volume MOD 4C 21.1 cm??? LV Ejection Fraction MOD 4C 75.2 % LV Cardiac Index MOD 4C 1831.4 cm???/min???m??? LV Diastolic Length 4C 7.4 cm LV Systolic Length 4C 5.4 cm LV Diastolic Volume MOD 2C 98.3 cm??? LV Systolic Volume MOD 2C 40.9 cm??? LV Ejection Fraction MOD 2C 58.4 % LV Cardiac Index MOD 2C 1640.2 cm???/min???m??? LV Diastolic Length 2C 7.3 cm LV Systolic Length 2C 6.1 cm LA Volume 57.8 cm??? 18 - 58 / 22 - 52 cm??? LA Volume Index 30.0 cm???/m??? 16 - 28 cm???/m??? DOPPLER AV Peak Velocity 163.7 cm/s AV Peak Gradient 10.7 mmHg AV Mean Velocity 115.4 cm/s AV Mean Gradient 5.8 mmHg AV Velocity Time Integral 39.5 cm AI Peak Velocity 257.0 cm/s AI Peak Gradient 26.4 mmHg AI Pressure Half Time 1834.2 ms LVOT Peak Velocity 115.7 cm/s LVOT Peak Gradient 5.4 mmHg LVOT Velocity Time Integral 31.6 cm LVOT Stroke Volume 97.0 cm??? LVOT Stroke Volume Index 52.4 ml/m??? LVOT Cardiac Index 2772.3 cm???/min???m??? AV Area Cont Eq vti 2.5 cm??? AV Area Cont Eq pk 2.2 cm??? MV Area PHT 3.2 cm??? Mitral E Point Velocity 93.0 cm/s Mitral A Point Velocity 116.7 cm/s Mitral E to A Ratio 0.8 MV Deceleration Time 237.1 ms TR Peak Velocity 283.0 cm/s TR Peak Gradient 32.0 mmHg PV Peak Velocity 100.6 cm/s PV Peak Gradient 4.0 mmHg FINDINGS Left Ventricle Left ventricular ejection fraction is estimated at 55 to 60%.Normal left ventricular systolic function with no obvious regional wall motion abnormalities. Moderately increased left ventricular wall thickness. Right Ventricle Normal right ventricular size and function. Right ventricular systolic pressure within normal limits. Right Atrium Normal right atrial size. Left Atrium Mildly increased left atrial volume. Mildly increased left atrial area. Mitral Valve Structurally normal mitral valve. mild mitral regurgitation. No mitral stenosis.moderate mitral annular calcification. Aortic Valve Trileaflet aortic valve. mild aortic regurgitation. No aortic stenosis.aortic valve sclerosis. Tricuspid Valve Structurally normal tricuspid valve. Mild tricuspid regurgitation. No tricuspid stenosis. Pulmonic Valve Structurally normal pulmonic valve. Trace pulmonic regurgitation. No pulmonic stenosis. Pericardium No pericardial or pleural effusion. Aorta Normal size aortic root and proximal ascending aorta. CONCLUSIONS 1. Normal left ventricular size and systolic function 2. Mild mitral and tricuspid regurgitation 3. Mild aortic regurgitation Previewed by: Dr. Memo Kraft MD (Electronically Signed) Final Date: 15 December 2024 12:22
== END | disposition home or self-care (01) ==
LOC: RADMAMWWP 09:34
PROVIDERS: ATTEND Internal Medicine
DX: Z12.31 Encounter for screening mammogram for malignant neoplasm of breast (principal); M81.0 Age-related osteoporosis without current pathological fracture; I08.2 Rheumatic disorders of both aortic and tricuspid valves; R92.323 Mammographic fibroglandular density, bilateral breasts; R92.1 Mammographic calcification found on diagnostic imaging of breast; Z78.0 Asymptomatic menopausal state; Z80.3 Family history of malignant neoplasm of breast
CPT/HCPCS: 77063; 77067; 77080; 93306